=== PATIENT | female | born 2000 ===

== ENCOUNTER 2021-02-18 16:50 | Emergency (ER) | payer SELFPAY ==
[2021-02-18] MEDS ORDERED: methylPREDNISolone Sod Succinate 125 MG/2 ML INJ IV ONE (16:57)
[2021-02-18] MEDS ORDERED: diphenhydrAMINE 50 MG/ML VIAL IV ONE (16:57)
[2021-02-18] MEDS ORDERED: FAMOTIDINE 20 MG/2 ML INJ IV ONE (16:57)
--- NOTE | 2021-02-18 16:59 | Emergency Department Report ---
HPI - General Chief Complaint: Allergic Reaction Time Seen by Provider: 02/18/21 16:56 - HPI HPI: 20-year-old female with past medical history asthma presents to the hospital complaints of acute allergic reaction. Patient last had shrimp and grits approx imately noon. 20 minutes prior to arrival i.e. approximately 4:20 PM she began to have hives, pruritus, swelling to her face, and tightness to her throat. Patient currently denies wheezing or shortness of breath. Denies any other previous history of allergic reaction. Patient is from [place] and has had shellfish and seafood often without previous allergic reaction. No known new exposures. No meds prior to arrival ED Past Medical Hx - Past Medical History Previous Medical History?: Yes Hx Asthma: Yes - Surgical History Past Surgical History?: No - Medications Home Medications: Home Medications Medication Instructions Recorded Confirmed Last Taken Type EPINEPHrine (NF) [Epipen (Nf)] 0.3 mg IM PRN PRN #1 syringekit 02/18/21 Unknown Rx Famotidine [Pepcid] 20 mg PO BID #10 tablet 02/18/21 Unknown Rx diphenhydrAMINE [Benadryl CAP] 50 mg PO Q8HR PRN #30 capsule 02/18/21 Unknown Rx predniSONE [Deltasone] 40 mg PO QDAY 5 Days tab 02/18/21 Unknown Rx ED Review of Systems ROS: Stated complaint: ALLERGIC REACTION Other details as noted in HPI Comment: All other systems reviewed and negative Physical Exam - Physical Exam Vital Signs: Vital Signs 02/18/21 16:55 Temperature 99.1 F Pulse Rate 82 Respiratory 18 Rate Blood Pressure 122/71 [Right] O2 Sat by Pulse 100 Oximetry Physical Exam: General: No acute distress Head: Atraumatic, facial swelling right greater than left Eyes: Mild right conjunctival injection. Mild right periorbital swelling ENT: Moist mucous membranes, no tongue swelling, lip swelling, no posterior pharyngeal swelling, no stridor Neck: Normal appearance, no midline tenderness Chest: Clear to auscultation bilaterally CV: Regular rate and rhythm Abdomen: Soft, normal bowel sounds, nontender, nondistended, no rebound or guarding Back: Normal inspection Extremity: Normal inspection, full range of motion Neuro: Alert O x 3, no facial asymmetry, speech clear, no gross motor sensory deficit Psych: Appropriate behavior Skin: Diffuse hives and erythema ED Course Vital Signs 02/18/21 16:55 Temperature 99.1 F Pulse Rate 82 Respiratory 18 Rate Blood Pressure 122/71 [Right] O2 Sat by Pulse 100 Oximetry ED Medical Decision Making - Medical Decision Making 20-year-old female presents to the hospital with allergic reaction that occurred approximately 5 hours after eating shellfish. Symptoms improving with Benadryl, Pepcid, and Solu-Medrol. Patient denies throat tightness or shortness of breath. Repeat vitals stable. It is unclear if allergic reaction was caused by shellfish or or another unknown allergen. Patient will be discharged with medications for acute allergic reaction as well as an EpiPen for anaphylaxis (pt informed to go to ED immediately after using epi pen.. Critical Care Time: No Critical care attestation.: If time is entered above; I have spent that time in minutes in the direct care of this critically ill patient, excluding procedure time. ED Disposition Clinical Impression: Acute allergic reaction Disposition: HOME / SELF CARE / HOMELESS Is pt being admited?: No Does the pt Need Aspirin: No Condition: Stable Instructions: Allergies, Adult, [id number], How to Use an Auto-Injector Pen Additional Instructions: Take the medication as prescribed. Follow-up with your doctor or doctor/clinic provided. Return if symptoms worsen as indicated by your discharge instructions. Prescriptions: diphenhydrAMINE [Benadryl CAP] 50 mg PO Q8HR PRN #30 capsule PRN Reason: Allergy Symptoms predniSONE [Deltasone] 40 mg PO QDAY 5 Days tab EPINEPHrine (NF) [Epipen (Nf)] 0.3 mg IM PRN PRN #1 syringekit PRN Reason: Anaphylaxis Famotidine [Pepcid] 20 mg PO BID #10 tablet Referrals: REMINGTON MINER MD [Staff Physician] - 3-5 Days (hot stick worker ) LUIS ENRIQUE WAGONER MD [Staff Physician] - 3-5 Days (primary care doctor ) [facility] [Provider Group] - 3-5 Days (primary care clinic ) Time of Disposition: 19:12
[2021-02-18 18:59] VITALS: BP 113/56
== END 2021-02-18 19:30 | disposition home or self-care (01) ==
LOC: ED 16:50
DX: T78.40XA Allergy, unspecified, initial encounter (principal); J45.909 Unspecified asthma, uncomplicated; Z79.899 Other long term (current) drug therapy; X58.XXXA Exposure to other specified factors, initial encounter
CPT/HCPCS: 96374; 96375; 99283; J1200; J2930